=== PATIENT | female | born 1995 | race Caucasian/White ===

== ENCOUNTER 2023-10-25 11:02 | Day surgery (SDC) | payer OTHER ==
[2023-10-25] MEDS ORDERED: Ondansetron PF 4 MG/2 ML Vial ONE (11:43)
[2023-10-25 11:48] LABS: #Basophils 0.1 10x3/uL (0.0-0.2); #Eosinphils 0.1 10x3/uL (0.0-0.5); #Monocytes 0.7 10x3/uL (0.0-1.1); #Neutrophils 7.5 10x3/uL (1.5-8.4); %Basophils 0.5 % (0.0-2.0); %Eosinophils 0.8 % (0.0-6.0); %Lymphocytes 14.2 % (18.0-47.0); %Monocytes 6.9 % (0.0-10.0); %Neutrophils 76.1 % (40.0-75.0); Hematocrit 39.1 % (34.9-44.5); Hemoglobin 13.4 g/dL (12.0-15.5); Mean Corpuscular HGB CONC 34.3 g/dL (32.0-36.0); Mean Corpuscular Hemoglobin 30.8 pg (27.0-33.0); Mean Corpuscular Volume 89.9 fl (81.6-98.3); Mean Platelet Volume 11.1 fl (7.4-10.4); Platelet Count 230 10x3/uL (150-450); RBC Distribution Width 12.5 % (11.5-14.5); Red Blood Cell (RBC) Count 4.35 10x6/uL (3.90-5.03); White Blood Cell (WBC) Count 9.9 10x3/uL (3.5-10.5)
[2023-10-25 11:57] LABS: Bilirubin Neg (Negative); Blood, Urine Negative (Negative); Glucose, Urine (Dipstick) Normal (Negative); Ketone, Urine Negative (Negative); Leukocyte 25 (Negative); Nitrite Negative (Negative); Protein, Urine (Dipstick) Negative (Neg-Trace); Specific Gravity, Urine 1.025 (1.005-1.030); Urobilinogen Normal mg/dL (Less than 2)
[2023-10-25 11:58] LABS: Clarity Clear (Clear)
[2023-10-25 12:08] LABS: Bacteria/HPF 1+ HPF (None Seen); CAUTI Indications for Culture Pregnancy; RBC/HPF None Seen HPF (0-3); Squamous Epithelial 0-3 HPF (0-3); WBC/HPF None Seen HPF (0-3)
[2023-10-25 12:09] LABS: Urine Culture Reflex Yes Yes
[2023-10-25 12:10] LABS: ALT (SGPT) Less than 7 U/L (8-55); AST (SGOT) 10 U/L (5-34); Albumin 3.4 g/dL (3.5-5.0); Alkaline Phosphatase 76 U/L (40-110); Anion Gap 14 mmol/L (10-20); BUN (Urea Nitrogen) 6 mg/dL (7.0-18.7); Bilirubin, Total 0.2 mg/dL (0.2-1.2); Calc. Creatinine Clearance 0 mL/min (70-130); Calcium 8.7 mg/dL (7.8-10.44); Carbon Dioxide 20 mmol/L (22-29); Chloride 107 mmol/L (98-107); Estimated GFR 127; Globulin 2.6 g/dL (2.4-3.5); Glucose 89 mg/dL (70-105); Potassium 3.9 mmol/L (3.5-5.1); Sodium 137 mmol/L (136-145)
[2023-10-25 13:52] VITALS: BMI 38.6
[2023-10-25] MEDS ORDERED: hydrALAZINE 20 MG/ML VIAL SLOW IVP PRN (14:04)
== END 2023-10-25 14:08 | disposition home or self-care (01) ==
LOC: CSHERS 11:02 → CSHLD/OP 13:32
PROVIDERS: ATTEND Family Medicine
DX: O99.612 Diseases of the digestive system complicating pregnancy, second trimester (principal); K80.20 Calculus of gallbladder without cholecystitis without obstruction; O99.342 Other mental disorders complicating pregnancy, second trimester; F41.9 Anxiety disorder, unspecified; O99.282 Endocrine, nutritional and metabolic diseases complicating pregnancy, second trimester; E05.91 Thyrotoxicosis, unspecified with thyrotoxic crisis or storm; O13.2 Gestational [pregnancy-induced] hypertension without significant proteinuria, second trimester; Z98.84 Bariatric surgery status; Z79.899 Other long term (current) drug therapy; Z79.82 Long term (current) use of aspirin; Z88.0 Allergy status to penicillin; Z88.8 Allergy status to other drugs, medicaments and biological substances; Z3A.27 27 weeks gestation of pregnancy
CPT/HCPCS: 76705; 80053; 81001; 83605; 85025; 87086; 96361; 96374; 99282; J2405

== ENCOUNTER 2023-10-31 23:16 | Day surgery (SDC) | payer OTHER ==
[2023-10-31] MEDS ORDERED: hydrALAZINE 20 MG/ML VIAL SLOW IVP PRN (23:30)
[2023-10-31] MEDS ORDERED: Lactated Ringer's 1,000 ML IV SCH (23:45)
[2023-11-01 00:23] VITALS: BMI 37.4
[2023-11-01] MEDS ORDERED: Terbutaline Sulfate 1 MG/ML VIAL SC PRN (00:32)
[2023-11-01 01:09] LABS: Bilirubin Neg (Negative); Blood, Urine Negative (Negative); Clarity Slightly Cloudy (Clear); Glucose, Urine (Dipstick) Normal (Negative); Ketone, Urine Negative (Negative); Leukocyte Negative (Negative); Nitrite Negative (Negative); Protein, Urine (Dipstick) Negative (Neg-Trace); Urobilinogen Normal mg/dL (Less than 2)
[2023-11-01 01:29] LABS: CAUTI Indications for Culture Pregnancy; RBC/HPF None Seen HPF (0-3); Squamous Epithelial 0-3 HPF (0-3); WBC/HPF None Seen HPF (0-3)
[2023-11-01 01:30] LABS: Bacteria/HPF None Seen HPF (None Seen)
[2023-11-01 01:31] LABS: Urine Culture Reflex Yes Yes
== END 2023-11-01 04:45 | disposition home or self-care (01) ==
LOC: CSHLD/OP 23:16
PROVIDERS: ATTEND Family Medicine
DX: O47.03 False labor before 37 completed weeks of gestation, third trimester (principal); O34.33 Maternal care for cervical incompetence, third trimester; Z88.0 Allergy status to penicillin; Z88.8 Allergy status to other drugs, medicaments and biological substances; Z3A.28 28 weeks gestation of pregnancy
CPT/HCPCS: 76815; 81001; 87086; J3105

== ENCOUNTER 2023-11-19 10:23 | Day surgery (SDC) | payer OTHER ==
[2023-11-19] MEDS ORDERED: hydrALAZINE 20 MG/ML VIAL SLOW IVP PRN (10:52)
[2023-11-19] MEDS ORDERED: Ondansetron PF 4 MG/2 ML Vial IVP PRN (10:52)
[2023-11-19 10:53] VITALS: BMI 38.7
[2023-11-19] MEDS ORDERED: Lactated Ringer's 1,000 ML IV SCH (11:00)
[2023-11-19 12:05] LABS: Hematocrit 40.8 % (34.9-44.5); Hemoglobin 14.1 g/dL (12.0-15.5); Mean Corpuscular HGB CONC 34.6 g/dL (32.0-36.0); Mean Corpuscular Hemoglobin 30.3 pg (27.0-33.0); Mean Corpuscular Volume 87.6 fl (81.6-98.3); Mean Platelet Volume 11.4 fl (7.4-10.4); Platelet Count 238 10x3/uL (150-450); Red Blood Cell (RBC) Count 4.66 10x6/uL (3.90-5.03); White Blood Cell (WBC) Count 9.4 10x3/uL (3.5-10.5)
[2023-11-19 12:19] LABS: ALT (SGPT) Less than 7 U/L (8-55); AST (SGOT) 10 U/L (5-34); Albumin 3.4 g/dL (3.5-5.0); Alkaline Phosphatase 83 U/L (40-110); Anion Gap 13 mmol/L (10-20); BUN (Urea Nitrogen) 7 mg/dL (7.0-18.7); Bilirubin, Total 0.2 mg/dL (0.2-1.2); Calc. Creatinine Clearance 244 mL/min (70-130); Calcium 8.6 mg/dL (7.8-10.44); Carbon Dioxide 19 mmol/L (22-29); Chloride 108 mmol/L (98-107); Estimated GFR 128; Globulin 2.7 g/dL (2.4-3.5); Glucose 83 mg/dL (70-105); Protein, Total 6.1 g/dL (6.0-8.3); Sodium 136 mmol/L (136-145)
[2023-11-19 12:36] LABS: Free T4 (Free Thyroxine) 0.69 ng/dL (0.70-1.48); Thyroid Stimulating Hormone 1.3934 uIU/mL (0.35-4.94)
== END 2023-11-19 13:58 | disposition home or self-care (01) ==
LOC: CSHLD/OP 10:23
PROVIDERS: ATTEND Family Medicine
DX: O99.891 Other specified diseases and conditions complicating pregnancy (principal); O99.283 Endocrine, nutritional and metabolic diseases complicating pregnancy, third trimester; E86.0 Dehydration; O21.2 Late vomiting of pregnancy; R00.0 Tachycardia, unspecified; O99.343 Other mental disorders complicating pregnancy, third trimester; F32.A Depression, unspecified; Z79.82 Long term (current) use of aspirin; Z79.899 Other long term (current) drug therapy; Z3A.30 30 weeks gestation of pregnancy
CPT/HCPCS: 80053; 84439; 84443; 85027; 96360; 96361; 99282

== ENCOUNTER 2023-11-26 11:08 | Day surgery (SDC) | payer OTHER ==
[2023-11-26] MEDS ORDERED: hydrALAZINE 20 MG/ML VIAL SLOW IVP PRN (12:18)
[2023-11-26] MEDS ORDERED: Ondansetron PF 4 MG/2 ML Vial IM SCH (12:30)
[2023-11-26] MEDS ORDERED: Lactated Ringer's 1,000 ML IV SCH (12:30)
[2023-11-26] MEDS ORDERED: Ondansetron PF 4 MG/2 ML Vial ONE (12:34)
[2023-11-26 12:55] LABS: #Monocytes 0.8 10x3/uL (0.0-1.1); #Neutrophils 6.4 10x3/uL (1.5-8.4); %Basophils 0.4 % (0.0-2.0); %Eosinophils 0.3 % (0.0-6.0); %Lymphocytes 21.2 % (18.0-47.0); %Monocytes 8.7 % (0.0-10.0); %Neutrophils 67.6 % (40.0-75.0); Hematocrit 38.5 % (34.9-44.5); Hemoglobin 13.6 g/dL (12.0-15.5); Mean Corpuscular HGB CONC 35.3 g/dL (32.0-36.0); Mean Corpuscular Hemoglobin 30.2 pg (27.0-33.0); Mean Corpuscular Volume 85.6 fl (81.6-98.3); Platelet Count 211 10x3/uL (150-450); RBC Distribution Width 12.1 % (11.5-14.5); White Blood Cell (WBC) Count 9.4 10x3/uL (3.5-10.5)
[2023-11-26 13:17] VITALS: BMI 38.7
[2023-11-26 13:17] LABS: ALT (SGPT) 7 U/L (8-55); AST (SGOT) 13 U/L (5-34); Albumin 3.4 g/dL (3.5-5.0); Alkaline Phosphatase 92 U/L (40-110); Anion Gap 14 mmol/L (10-20); BUN (Urea Nitrogen) 6 mg/dL (7.0-18.7); Bilirubin, Total 0.2 mg/dL (0.2-1.2); Calc. Creatinine Clearance 0 mL/min (70-130); Calcium 8.9 mg/dL (7.8-10.44); Carbon Dioxide 20 mmol/L (22-29); Chloride 106 mmol/L (98-107); Estimated GFR 128; Globulin 2.7 g/dL (2.4-3.5); Glucose 66 mg/dL (70-105); Potassium 3.8 mmol/L (3.5-5.1); Protein, Total 6.1 g/dL (6.0-8.3); Sodium 136 mmol/L (136-145)
[2023-11-26 13:23] LABS: Bilirubin Neg (Negative); Blood, Urine Negative (Negative); Clarity Clear (Clear); Glucose, Urine (Dipstick) Normal (Negative); Ketone, Urine 5 mg/dL (Negative); Leukocyte Negative (Negative); Nitrite Negative (Negative); Protein, Urine (Dipstick) Negative (Neg-Trace); Specific Gravity, Urine 1.015 (1.005-1.030); Urobilinogen Normal mg/dL (Less than 2)
[2023-11-26 15:27] LABS: Bacteria/HPF None Seen HPF (None Seen); CAUTI Indications for Culture Pregnancy; RBC/HPF None Seen HPF (0-3); Squamous Epithelial None Seen HPF (0-3); WBC/HPF None Seen HPF (0-3)
[2023-11-26 15:28] LABS: Urine Culture Reflex Yes Yes
== END 2023-11-26 14:18 | disposition home or self-care (01) ==
LOC: CSHLD/OP 11:08
PROVIDERS: ATTEND Family Medicine
DX: O47.03 False labor before 37 completed weeks of gestation, third trimester (principal); O99.891 Other specified diseases and conditions complicating pregnancy; R00.2 Palpitations; O21.2 Late vomiting of pregnancy; O99.283 Endocrine, nutritional and metabolic diseases complicating pregnancy, third trimester; E05.91 Thyrotoxicosis, unspecified with thyrotoxic crisis or storm; E86.0 Dehydration; O99.343 Other mental disorders complicating pregnancy, third trimester; F41.9 Anxiety disorder, unspecified; Z98.84 Bariatric surgery status; Z88.0 Allergy status to penicillin; Z88.8 Allergy status to other drugs, medicaments and biological substances; Z98.890 Other specified postprocedural states; Z79.899 Other long term (current) drug therapy; Z3A.31 31 weeks gestation of pregnancy
CPT/HCPCS: 36415; 80053; 81001; 85025; 87086; J2405

== ENCOUNTER 2023-12-01 15:08 | Day surgery (SDC) | payer OTHER ==
[2023-12-01 15:22] VITALS: BMI 37.5
[2023-12-01] MEDS ORDERED: hydrALAZINE 20 MG/ML VIAL SLOW IVP PRN (15:38)
[2023-12-01] MEDS ORDERED: Lactated Ringer's 1,000 ML IV SCH (15:45)
[2023-12-01 16:08] LABS: #Monocytes 0.9 10x3/uL (0.0-1.1); #Neutrophils 7.1 10x3/uL (1.5-8.4); %Basophils 0.4 % (0.0-2.0); %Eosinophils 0.3 % (0.0-6.0); %Lymphocytes 17.1 % (18.0-47.0); %Monocytes 8.6 % (0.0-10.0); %Neutrophils 72.3 % (40.0-75.0); Hematocrit 38.6 % (34.9-44.5); Hemoglobin 13.4 g/dL (12.0-15.5); Mean Corpuscular HGB CONC 34.7 g/dL (32.0-36.0); Mean Corpuscular Hemoglobin 29.7 pg (27.0-33.0); Mean Corpuscular Volume 85.6 fl (81.6-98.3); Mean Platelet Volume 11.2 fl (7.4-10.4); Platelet Count 228 10x3/uL (150-450); Red Blood Cell (RBC) Count 4.51 10x6/uL (3.90-5.03); White Blood Cell (WBC) Count 9.9 10x3/uL (3.5-10.5)
[2023-12-01 16:18] LABS: Bilirubin Neg (Negative); Blood, Urine Negative (Negative); Clarity Clear (Clear); Glucose, Urine (Dipstick) 250 mg/dL (Negative); Ketone, Urine Negative (Negative); Leukocyte Negative (Negative); Nitrite Negative (Negative); Protein, Urine (Dipstick) Negative (Neg-Trace); Urobilinogen Normal mg/dL (Less than 2)
[2023-12-01 16:27] LABS: ALT (SGPT) 7 U/L (8-55); AST (SGOT) 10 U/L (5-34); Albumin 3.1 g/dL (3.5-5.0); Alkaline Phosphatase 98 U/L (40-110); Anion Gap 15 mmol/L (10-20); BUN (Urea Nitrogen) 9 mg/dL (7.0-18.7); Bilirubin, Total 0.2 mg/dL (0.2-1.2); Calc. Creatinine Clearance 236 mL/min (70-130); Calcium 8.6 mg/dL (7.8-10.44); Carbon Dioxide 17 mmol/L (22-29); Chloride 109 mmol/L (98-107); Estimated GFR 127; Globulin 2.7 g/dL (2.4-3.5); Glucose 90 mg/dL (70-105); Potassium 3.7 mmol/L (3.5-5.1); Protein, Total 5.8 g/dL (6.0-8.3); Sodium 137 mmol/L (136-145)
[2023-12-01 16:41] LABS: RBC/HPF None Seen HPF (0-3)
[2023-12-01 16:42] LABS: CAUTI Indications for Culture Pregnancy; WBC/HPF None Seen HPF (0-3)
[2023-12-01 16:43] LABS: Squamous Epithelial 0-3 HPF (0-3)
[2023-12-01 16:48] LABS: Bacteria/HPF 1+ HPF (None Seen)
[2023-12-01 16:49] LABS: Urine Culture Reflex Yes Yes
[2023-12-01 16:53] LABS: SARS-CoV-2 NAA Rapid Test Not Detected (NotDetected)
== END 2023-12-01 17:20 | disposition home or self-care (01) ==
LOC: CSHLD/OP 15:08
PROVIDERS: ATTEND Family Medicine
DX: O47.03 False labor before 37 completed weeks of gestation, third trimester (principal); O99.343 Other mental disorders complicating pregnancy, third trimester; O99.283 Endocrine, nutritional and metabolic diseases complicating pregnancy, third trimester; F41.9 Anxiety disorder, unspecified; E05.91 Thyrotoxicosis, unspecified with thyrotoxic crisis or storm; Z90.89 Acquired absence of other organs; Z98.890 Other specified postprocedural states; Z98.84 Bariatric surgery status; Z79.899 Other long term (current) drug therapy; Z88.8 Allergy status to other drugs, medicaments and biological substances; Z88.0 Allergy status to penicillin; Z3A.32 32 weeks gestation of pregnancy
CPT/HCPCS: 0241U; 80053; 81001; 85025; 87086

== ENCOUNTER 2023-12-16 12:26 | Observation (INO) | payer OTHER ==
[2023-12-16] MEDS ORDERED: hydrALAZINE 20 MG/ML VIAL SLOW IVP PRN ×2 (13:55→17:07)
[2023-12-16 15:01] LABS: Bilirubin Neg (Negative); Blood, Urine Negative (Negative); Clarity Clear (Clear); Glucose, Urine (Dipstick) 50 mg/dL (Negative); Ketone, Urine Negative (Negative); Leukocyte Negative (Negative); Nitrite Negative (Negative); Protein, Urine (Dipstick) Negative (Neg-Trace); Specific Gravity, Urine 1.025 (1.005-1.030); Urobilinogen Normal mg/dL (Less than 2)
[2023-12-16 15:38] LABS: Bacteria/HPF Rare-Few HPF (None Seen); CAUTI Indications for Culture Pelvic or flank pain; RBC/HPF None Seen HPF (0-3); Squamous Epithelial 0-3 HPF (0-3); WBC/HPF 0-3 HPF (0-3)
[2023-12-16 15:39] LABS: Calcium Oxalate Crystals 1+ HPF (None Seen)
[2023-12-16 15:41] LABS: Urine Culture Reflex No No
[2023-12-16] MEDS ORDERED: Zolpidem Tartrate 5 MG TAB PO PRN (17:07)
[2023-12-16] MEDS ORDERED: Promethazine HCl 25 MG/ML VIAL IM PRN (17:07)
[2023-12-16] MEDS ORDERED: Acetaminophen 500 MG TAB PO PRN (17:07)
[2023-12-16] MEDS ORDERED: Ondansetron PF 4 MG/2 ML Vial IVP PRN (17:07)
[2023-12-16] MEDS ORDERED: fentaNYL 50 mcg/mL 1 mL Vial SLOW IVP PRN (17:07)
[2023-12-16] MEDS ORDERED: Docusate 100 MG CAP PO PRN (17:07)
[2023-12-16 17:39] LABS: #Basophils 0.1 10x3/uL (0.0-0.2); #Monocytes 0.7 10x3/uL (0.0-1.1); #Neutrophils 6.4 10x3/uL (1.5-8.4); %Basophils 0.5 % (0.0-2.0); %Eosinophils 0.4 % (0.0-6.0); %Lymphocytes 22.6 % (18.0-47.0); %Monocytes 7.5 % (0.0-10.0); %Neutrophils 67.8 % (40.0-75.0); Hematocrit 41.4 % (34.9-44.5); Hemoglobin 14.3 g/dL (12.0-15.5); Mean Corpuscular HGB CONC 34.5 g/dL (32.0-36.0); Mean Platelet Volume 11.1 fl (7.4-10.4); Platelet Count 244 10x3/uL (150-450); RBC Distribution Width 12.3 % (11.5-14.5); Red Blood Cell (RBC) Count 4.93 10x6/uL (3.90-5.03); White Blood Cell (WBC) Count 9.5 10x3/uL (3.5-10.5)
[2023-12-16 18:01] LABS: ALT (SGPT) 8 U/L (8-55); AST (SGOT) 15 U/L (5-34); Albumin 3.4 g/dL (3.5-5.0); Alkaline Phosphatase 131 U/L (40-110); Anion Gap 15 mmol/L (10-20); BUN (Urea Nitrogen) 5 mg/dL (7.0-18.7); Bilirubin, Total 0.3 mg/dL (0.2-1.2); Calc. Creatinine Clearance 0 mL/min (70-130); Calcium 8.9 mg/dL (7.8-10.44); Carbon Dioxide 21 mmol/L (22-29); Chloride 106 mmol/L (98-107); Estimated GFR 128; Globulin 2.9 g/dL (2.4-3.5); Glucose 76 mg/dL (70-105); Potassium 4.1 mmol/L (3.5-5.1); Protein, Total 6.3 g/dL (6.0-8.3); Sodium 138 mmol/L (136-145)
[2023-12-16 18:16] LABS: Syphilis Antibody Nonreactive (Nonreactive); Syphilis Antibody Index 0.05 S/CO (<1.00 Non-Reactive)
[2023-12-16 18:17] LABS: Hep B Surf Ag - L&D Non-Reactive S/CO (NonReactive)
[2023-12-16 18:45] VITALS: BMI 39.4
[2023-12-16] MEDS: Betamet Acet/Betamet Na Ph 30 MG/5 ML VIAL IM SCH (18:47)
[2023-12-17] MEDS: Acetaminophen 500 MG TAB PO SCH (00:52)
[2023-12-17] MEDS: Lactated Ringer's 1,000 ML IV SCH ×2 (01:02)
[2023-12-17] MEDS: Betamet Acet/Betamet Na Ph 30 MG/5 ML VIAL IM SCH (18:38)
[2023-12-18 07:28] VITALS: BP 95/59; TEMP 99
== END 2023-12-18 09:45 | disposition home or self-care (01) ==
LOC: CSHLD/OP 12:26 → CSHLD 17:44 → CSHANTE 12-17 00:02
PROVIDERS: ADMIT Family Medicine; ATTEND Family Medicine
DX: O47.03 False labor before 37 completed weeks of gestation, third trimester (principal); Z79.899 Other long term (current) drug therapy; Z88.0 Allergy status to penicillin; Z88.8 Allergy status to other drugs, medicaments and biological substances; Z3A.34 34 weeks gestation of pregnancy
CPT/HCPCS: 36415; 76819; 80053; 81001; 85025; 86780; 86850; 86900; 86901; 87340; 96372; 99285; G0378; J0702; J7120

== ENCOUNTER 2024-01-07 12:34 | Inpatient (IN) | payer MEDICAID, OTHER ==
[2024-01-07] MEDS ORDERED: HYDROcodone/Acetaminophen 5/325 mg Tablet PO PRN (12:58)
[2024-01-07] MEDS ORDERED: fentaNYL 50 mcg/mL 1 mL Vial SLOW IVP PRN (12:58)
[2024-01-07] MEDS ORDERED: Acetaminophen 500 MG TAB PO PRN (12:58)
[2024-01-07] MEDS ORDERED: Tranexamic Acid 1,000 MG/10 ML VIAL IVP PRN (12:58)
[2024-01-07] MEDS ORDERED: Diphenoxylate HCl/Atropine Tablet PO PRN (12:58)
[2024-01-07] MEDS ORDERED: Ondansetron PF 4 MG/2 ML Vial IVP PRN ×2 (12:58→14:33)
[2024-01-07] MEDS ORDERED: Ibuprofen 800 MG TAB PO PRN (12:58)
[2024-01-07] MEDS ORDERED: Promethazine HCl 25 MG/ML VIAL IM PRN ×2 (12:58→14:33)
[2024-01-07] MEDS ORDERED: Misoprostol 200 MCG TAB PR PRN (12:58)
[2024-01-07] MEDS ORDERED: Carboprost 250 MCG/ML AMP IM PRN (12:58)
[2024-01-07] MEDS ORDERED: Methylergonovine 0.2 MG/ML VIAL IM PRN (12:58)
[2024-01-07] MEDS ORDERED: Lidocaine 1% (PF) 30 ML VIAL SC PRN (12:58)
[2024-01-07] MEDS ORDERED: hydrALAZINE 20 MG/ML VIAL SLOW IVP PRN (12:58)
[2024-01-07] MEDS ORDERED: Oxytocin 30 units/NS 500 ML 500 ML IV SCH ×2 (13:00)
[2024-01-07] MEDS ORDERED: Lactated Ringer's 1,000 ML IV SCH (13:00)
[2024-01-07 13:33] VITALS: BMI 39.4
[2024-01-07 13:46] LABS: Hematocrit 36.6 % (34.9-44.5); Hemoglobin 12.8 g/dL (12.0-15.5); Mean Corpuscular Hemoglobin 28.8 pg (27.0-33.0); Mean Corpuscular Volume 82.2 fl (81.6-98.3); Mean Platelet Volume 12.1 fl (7.4-10.4); Platelet Count 206 10x3/uL (150-450); RBC Distribution Width 12.5 % (11.5-14.5); Red Blood Cell (RBC) Count 4.45 10x6/uL (3.90-5.03); White Blood Cell (WBC) Count 7.5 10x3/uL (3.5-10.5)
[2024-01-07] MEDS ORDERED: Bupivacaine 0.25% HCL 30 ML VIAL ONE (14:00)
[2024-01-07] MEDS ORDERED: ePHEDrine Sulfate 50 MG/10 ML VIAL ONE (14:00)
[2024-01-07] MEDS: fentaNYL/Ropivacaine Epidural 100 ML ONE (14:22)
[2024-01-07] MEDS ORDERED: Naloxone HCl 0.4 mg/ml Vial IVP PRN ×2 (14:33)
[2024-01-07] MEDS ORDERED: Acetaminophen 325 MG TAB PO PRN (14:33)
[2024-01-07] MEDS ORDERED: diphenhydrAMINE 50 MG/ML VIAL IVP PRN (14:33)
[2024-01-07] MEDS ORDERED: ePHEDrine Sulfate 50 MG/10 ML VIAL SLOW IVP PRN (14:33)
[2024-01-07] MEDS ORDERED: Moisturizing Cream (Eucerin) 113 GM JAR TOP PRN (14:33)
[2024-01-07] MEDS ORDERED: Lactated Ringer's 500 ML IV PRN (14:33)
[2024-01-07] MEDS ORDERED: Communication Order-Pharmacy FS SCH (14:45)
[2024-01-07] MEDS: Oxytocin 30 units/NS 500 ML 500 ML IV SCH (15:40)
[2024-01-07 15:46] LABS: HBSAg Index 0.25 S/CO (0-0.99); Hep B Surf Ag - L&D Non-Reactive S/CO (NonReactive)
[2024-01-07 15:49] LABS: Syphilis Antibody Nonreactive (Nonreactive); Syphilis Antibody Index 0.06 S/CO (<1.00 Non-Reactive)
[2024-01-07] MEDS: fentaNYL 2 mcg/Ropivacaine 0.2% Epidural 100 ML CADD EPIDURAL SCH (22:32)
[2024-01-08] MEDS ORDERED: Naloxone HCl 0.4 mg/ml Vial IV PRN (02:41)
[2024-01-08] MEDS ORDERED: Promethazine HCl 25 MG/ML VIAL IM PRN (02:41)
[2024-01-08] MEDS ORDERED: fentaNYL 50 mcg/mL 1 mL Vial SLOW IVP PRN (02:41)
[2024-01-08] MEDS ORDERED: Ondansetron PF 4 MG/2 ML Vial IVP PRN ×3 (02:41→05:29)
[2024-01-08] MEDS ORDERED: Naloxone HCl 0.4 mg/ml Vial IVP PRN ×2 (02:41)
[2024-01-08] MEDS ORDERED: Promethazine HCl 25 MG SUPP PR PRN (02:41)
[2024-01-08] MEDS ORDERED: Ketorolac Tromethamine 30 MG (1 mL) VIAL IVP PRN (02:41)
[2024-01-08] MEDS ORDERED: diphenhydrAMINE 50 MG/ML VIAL IVP PRN (02:41)
[2024-01-08] MEDS ORDERED: Meperidine HCl/PF 25 MG (1 mL) VIAL SLOW IVP PRN (02:41)
[2024-01-08] MEDS ORDERED: Ketorolac Tromethamine 30 MG (1 mL) VIAL IVP SCH (02:45)
[2024-01-08] MEDS ORDERED: Communication Order-Pharmacy FS SCH (02:45)
[2024-01-08] MEDS ORDERED: Lanolin Ointment 7 GM TUBE TOP PRN (05:29)
[2024-01-08] MEDS ORDERED: hydrALAZINE 20 MG/ML VIAL SLOW IVP PRN (05:29)
[2024-01-08] MEDS ORDERED: Bisacodyl 10 MG SUPP PR PRN (05:29)
[2024-01-08] MEDS: CEFAZOLIN 2 GM VIAL ONE (05:37)
[2024-01-08] MEDS: Azithromycin 500 MG VIAL ONE (05:37)
[2024-01-08] MEDS: Oxytocin 10 UNITS/ML VIAL ONE (05:38)
[2024-01-08] MEDS: Dexmedetomidine 200 MCG/2 ML VIAL ONE (05:38)
[2024-01-08] MEDS: Dexamethasone 4 mg/ml Vial ONE (05:38)
[2024-01-08] MEDS: Morphine PF 10 MG/10 ML VIAL ONE (05:38)
[2024-01-08] MEDS: Ondansetron PF 4 MG/2 ML Vial ONE (05:38)
[2024-01-08] MEDS: Phenylephrine 40 MG/NS 250 ML 250 ML ONE (05:38)
[2024-01-08] MEDS: Ketorolac Tromethamine 30 MG (1 mL) VIAL IVP SCH (07:26)
[2024-01-08] MEDS: Prenatal Vitamin 1 TAB PO SCH (07:26)
[2024-01-08] MEDS: Docusate 100 MG CAP PO SCH (07:26)
[2024-01-08] MEDS: Ferrous Sulfate 325 MG TAB PO SCH (12:23)
[2024-01-08] MEDS: HYDROcodone/Acetaminophen 5/325 mg Tablet PO PRN (13:39)
[2024-01-08] MEDS ORDERED: HYDROcodone/Acetaminophen 5/325 mg Tablet PO PRN (14:45)
[2024-01-08] MEDS ORDERED: Meperidine HCl/PF 25 MG (1 mL) VIAL IM PRN (14:45)
[2024-01-09 04:17] LABS: Hematocrit 31.4 % (34.9-44.5); Hemoglobin 10.3 g/dL (12.0-15.5); Mean Corpuscular HGB CONC 32.8 g/dL (32.0-36.0); Mean Corpuscular Hemoglobin 28.1 pg (27.0-33.0); Mean Corpuscular Volume 85.6 fl (81.6-98.3); Mean Platelet Volume 11.7 fl (7.4-10.4); Platelet Count 147 10x3/uL (150-450); RBC Distribution Width 12.9 % (11.5-14.5); Red Blood Cell (RBC) Count 3.67 10x6/uL (3.90-5.03); White Blood Cell (WBC) Count 10.4 10x3/uL (3.5-10.5)
[2024-01-09] MEDS: Ibuprofen 800 MG TAB PO SCH (07:25)
[2024-01-09] MEDS: Simethicone Chewable 80 MG TAB PO PRN (07:45)
[2024-01-09] MEDS ORDERED: Ibuprofen 800 MG TAB PO PRN (08:00)
[2024-01-09] MEDS: Ketorolac Tromethamine 30 MG (1 mL) VIAL ONE (10:09)
[2024-01-09] MEDS: Boostrix 0.5 ML (Tdap) VIAL (>/=7 yrs of age) IM ONE (10:10)
[2024-01-09] MEDS: Moisturizing Cream (Eucerin) 113 GM JAR TOP PRN (14:33)
[2024-01-09] MEDS: diphenhydrAMINE 25 MG CAP PO PRN (14:34)
[2024-01-10 16:33] VITALS: BP 114/58; TEMP 98.4
== END 2024-01-10 18:39 | disposition home or self-care (01) | DRG 788 ==
LOC: CSHLD 12:34 → CSHPP 01-08 04:50
PROVIDERS: ADMIT Family Medicine; ATTEND Family Medicine
PROC: 10907ZC Drainage of Amniotic Fluid, Therapeutic from Products of Conception, Via Natural or Artificial Opening (ICD-10-PCS; 2024-01-07)
PROC: 10D00Z1 Extraction of Products of Conception, Low, Open Approach (ICD-10-PCS; principal; 2024-01-08)
DX: O76 Abnormality in fetal heart rate and rhythm complicating labor and delivery (principal); Z3A.37 37 weeks gestation of pregnancy; Z37.0 Single live birth; Z88.0 Allergy status to penicillin; Z88.8 Allergy status to other drugs, medicaments and biological substances; O99.344 Other mental disorders complicating childbirth; F32.A Depression, unspecified
CPT/HCPCS: 36415; 51702; 85027; 86780; 86850; 86900; 86901; 87340; J0665; J1100; J1885; J2274; J2405; J2590